=== PATIENT | male | born 1960 | race Two or more races ===

== ENCOUNTER 2022-11-03 06:08 | Outpatient (REF) | payer OTHER, SELFPAY ==
[2022-11-03 11:25] LABS: Appearance Urine Clear; Color Urine Yellow; Glucose Urine UA Negative (Negative); Leukocyte Esterase Urine Negative (Negative); Nitrite Urine Negative (Negative); Specific Gravity - Urine 1.015 (1.005-1.025); Urine Blood Negative (Negative); Urine Ketones Negative (Negative); Urine Protein Negative (Neg-Trace)
[2022-11-03 11:31] LABS: Bacteria Urine None Seen (None Seen); Hyaline Casts Urine 0-2 /LPF (0-2); RBC Urine 0-2 /HPF (0-2); Squamous Epithelial Cell Urine 0-2 /HPF (0-2); WBC Urine 0-5 /HPF (0-5)
[2022-11-03 12:06] LABS: Alanine Aminotransferase 88 U/L (0-40); Albumin Level 4.3 g/dL (3.5-5.0); Alkaline Phosphatase 60 U/L (39-117); Anion Gap 12 (12-20); Aspartate Amino Transferase 40 U/L (5-37); Bilirubin Total 0.6 mg/dL (0.0-1.0); Blood Urea Nitrogen 12 mg/dL (9-16); Calcium 9.5 mg/dL (8.4-10.2); Carbon Dioxide 27 mmol/L (22-29); Chloride 107 mmol/L (96-108); Cholesterol 201 mg/dL; Estimated Glomerular Filt Rate > 60; Glucose Fasting 115 mg/dL (60-99); HDL Cholesterol 42 mg/dL; LDL Cholesterol Calculated 133 mg/dl; PSA,Total (Free>4and<10) 0.67 ng/mL (0.00-4.00); Potassium 4.4 mmol/L (3.3-5.1); Sodium 142 mmol/L (135-145); TSH reflex Free T4 4.91 uIU/mL (0.32-4.0); Total Protein 7.2 g/dL (6.5-8.0); Triglycerides 130 mg/dL
[2022-11-03 13:09] LABS: Free T4 (Free Thyroxine) 0.94 ng/dL (0.71-1.85)
== END 2022-11-03 06:09 | disposition home or self-care (01) ==
LOC: HO.HMGCLDS 06:08
PROVIDERS: PCP Internal Medicine; Visit Provider Internal Medicine
DX: Z12.5 Encounter for screening for malignant neoplasm of prostate (principal); E03.9 Hypothyroidism, unspecified; E78.5 Hyperlipidemia, unspecified; M54.30 Sciatica, unspecified side; I10 Essential (primary) hypertension
CPT/HCPCS: 36415; 80053; 80061; 81001; 84153; 84439; 84443

== ENCOUNTER 2023-01-09 08:20 | Outpatient (AMB) | payer OTHER, SELFPAY ==
--- NOTE | 2023-01-09 08:24 | A.OFFVIS_ITS ---
Intake Vital Signs 01/09/23 08:41 Height 5 ft 6 in BP 112/58 L Blood Pressure Location Lt brachial Position Sitting Pulse 80 Intake Visit Reasons: rectal bleeding Intake Note: Patient new consult for rectal bleeding and Colonoscopy screening. Patient cc: rectal bleeding due hemorrhoids on and off. 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 Accompanied by: Self / Same As Patient Allergies Sulfa (Sulfonamide Antibiotics) Allergy (Verified 01/09/23 08:24) vomiting Medication List - Last Reconciled 01/09/23 by Hallie Lei PA-C bimatoprost 0.01% (Lumigan) 0 drps ophthalmic (eye) dorzolamide 2% 0 drps ophthalmic (eye) hydrocortisone 2.5% 1 appl [place] BID-QID PRN ketoconazole 2% 1 appl topical DAILY lisinopril 10 mg PO DAILY thyroid (pork) ([place] Thyroid) 45 mg (1.5 x 30 mg) PO DAILY HPI HPI Comments History of Present Illness Details A 62-year-old male referred with rectal bleeding he had been seen by PCP is using rectal cream with good response. He believes he has hemorrhoids He has never had screening colonoscopy appetite is good Bowels normal He has no respiratory or cardiac Reviewed please record elevated liver enzymes He does drink alcohol No nausea, vomiting, hematemesis, hematochezia fevers or chills PFSH Surgical History History of hernia surgery Family History Mother No problems noted. Social History Household Members Other:: , 1 daughter with 5 children [facility] Patient Tobacco Use Status: Never used Tobacco e-Cigarette/Vaping Use: Never Used Current occupational status: unemployed Cognitive needs: No Hearing needs: No Vision needs: Yes Review of Systems Const All systems reviewed & are unremarkable except as noted in HPI and below Card Denies chest pain and Denies dyspnea Resp Denies dyspnea GI Denies abdominal pain, Denies hematochezia, Denies change in stool character, Denies heartburn, Denies nausea and Denies vomiting Physical Exam Vital Signs: Last Vital Signs Pulse 80 01/09/23 08:41 BP 112/58 L 01/09/23 08:41 Const General: cooperative, healthy appearing, comfortable and no acute distress Orientation/consciousness: patient oriented x3 Limitations: no limitations Resp Effort & Inspection: normal respiratory effort and able to speak in complete sentences Auscultation: clear to auscultation bilaterally Cardio Rate: regular rate Rhythm: regular rhythm Heart sounds: S1 normal heart sound present and S2 normal heart sound present GI Palpation (GI): Soft to palpation and nontender Auscultation: normal bowel sounds Neuro General: patient oriented x3 Extrem General: Yes full ROM Psych Appearance: grossly normal Mental Status: mental status grossly normal Speech and movement: Normal speech and movement present and Clear speech present Affect: normal affect Attitude: cooperative Thought process: Normal thought process present Thought content: Normal thought content present Insight: Good insight present (Psych) Judgement: Good judgement present (Psych) Results Reviewed Results Reviewed: Labs Assessment & Plan Assessment & Plan (1) Rectal bleeding: Code(s): K62.5 - Hemorrhage of anus and rectum Plan: High-fiber diet Continue rectal cream Avoid straining Colonoscopy (2) Elevated liver enzymes: Comment: Alcohol socially, maybe more Code(s): R74.8 - Abnormal levels of other serum enzymes Plan: Liver w/u- labs/u/s Monitor alcohol use Plan Colonoscopy, MiraLax Gatorade prep Maintain high-fiber diet Avoid straining Orders: Orders Colonoscopy - GI Use Only Today K62.5 - Hemorrhage of anus and rectum LETICIA Reflex Titer and Pattern Today R74.01 - Elevation of levels of liver trans aminase levels Hepatitis A,B,C Profile Today R79.89 - Other specified abnormal findings of blood chemistry Mitochondrial Antibody Today R74.01 - Elevation of levels of liver transaminase levels Smooth Muscle Antibody Today R74.8 - Abnormal levels of other serum enzymes Alpha 1 Anti-trypsin Today R74.01 - Elevation of levels of liver transaminase levels Ceruloplasmin Today E78.5 - Hyperlipidemia, unspecified, I10 - Essential (primary) hypertension, K62.5 - Hemorrhage of anus and rectum, R74.8 - Abnormal levels of other serum enzymes Liver Panel Today R10.11 - Right upper quadrant pain US abdomen comp w elastography Today R74.8 - Abnormal levels of other serum enzymes Medications: New bisacodyl (Dulcolax (bisacodyl)) Take 4 tablets by mouth at 12:00pm the day before your procedure. 20 mg (4 x 5 mg) PO ONCE 1 day 4 tabs 0RF colonoscopy prep Z12.11 - Encounter for screening for malignant neoplasm of colon polyethylene glycol 3350 (Miralax) Take as directed by mouth the day before your procedure. 238 grams PO ONCE 1 day 238 grams 0RF Patient Instructions: Srinivasan 62-year-old male referred with rectal bleeding, likely hemorrhoidal, however needs further evaluation. Elevated liver enzymes He has never had index screening colonoscopy-discussed procedure, rare risks, need for escorted due to anesthesia as well as MiraLax Gatorade prep literature given agrees to proceed Reviewed labs elevated liver enzymes will do liver workup, we will also get abdominal ultrasound Will see him back in follow-up for plan of care Appreciate the opportunity assist in the care this srinivasan Ramos Coding Level of Care Code New Pt Level 4 (65061) Diagnoses Rectal bleeding K62.5 Elevated liver enzymes R74.8 Time Spent (min) 45
[2023-01-09 08:41] VITALS: BP 112/58; PULSE 80
== END 2023-01-09 09:25 | disposition home or self-care (01) ==
PROVIDERS: PCP Internal Medicine; Visit Provider Physician Assistant
DX: K62.5 Hemorrhage of anus and rectum (principal); R74.8 Abnormal levels of other serum enzymes
CPT/HCPCS: 99204

== ENCOUNTER → 2023-01-09 08:20 | Outpatient (BNVA) | payer OTHER, SELFPAY | PROVIDERS: PCP Internal Medicine; Visit Provider Physician Assistant ==

== ENCOUNTER 2023-01-31 07:57 | Outpatient (REF) | payer OTHER, SELFPAY ==
--- NOTE | ~2023-01-31 | US_ITS ---
EXAMINATION: US COMPLETE ABDOMEN WITH LIVER ELASTOGRAPHY CLINICAL INFORMATION: Abnormal serum enzymes. COMPARISON: None available. TECHNIQUE: Real-time imaging of the abdominal viscera. Noninvasive ultrasound liver fibrosis assessment is performed using Nesha ElastPQ point quantification shear wave elastography (2D-SWE) with a C5-2 MHz transducer. Multiple elastography samples are obtained. FINDINGS: PANCREAS: Normal. The visualized pancreatic head and body are normal in appearance. The remainder of the pancreas is obscured from visualization by the overlying bowel gas. ABDOMINAL AORTA: The proximal, middle, and distal aortic segments are normal in caliber. There are atherosclerotic calcifications. INFERIOR VENA CAVA: Visualized portions are normal. LIVER: Within the left hepatic lobe, a 1.9 cm benign, simple cyst is seen, for which no imaging follow-up is recommended. The liver demonstrates normal size, contour and echogenicity. No focal solid lesion or intrahepatic biliary duct dilatation. The right lobe measures 16.1 cm in length. The left lobe measures 10.3 cm in length. Portal flow is towards the liver (hepatopetal). Shear wave liver elastography median stiffness is 1.90 m/s (reference: normal median stiffness is 1.3 m/s or less). IQR/median stiffness to assess sampling precision is 0.11 (reference: good quality data set is IQR/median stiffness of 0.15 or less). GALLBLADDER: Normal. The gallbladder is physiologically distended without evidence of stones, sludge, polyps, wall thickening or pericholecystic fluid. COMMON BILE DUCT: Normal in caliber measuring 0.5 cm in diameter. RIGHT KIDNEY: Normal. No hydronephrosis. No renal calculi or focal parenchymal lesions. The kidney measures 10.3 cm in maximum dimension. LEFT KIDNEY: Normal. No hydronephrosis. No renal calculi or focal parenchymal lesions. The kidney measures 10.6 cm in maximum dimension. SPLEEN: Normal. The spleen measures 8.1 cm in maximum dimension. FREE FLUID: None. US/US abdomen comp w elastography IMPRESSION: 1. There is generalized increase in hepatic echotexture, consistent with fatty infiltration or hepatocellular disease. Please correlate clinically. No focal hepatic mass or intrahepatic biliary dilatation is seen. 2. Liver elastography: Measurements are suggestive of compensated advanced chronic liver disease but need further test for confirmation. REFERENCE: Society of Radiologists in Ultrasound Liver Stiffness Thresholds (2020): LIVER STIFFNESS THRESHOLDS: *Liver Stiffness equal or less than 1.3 m/s: High probability of being normal. *Liver Stiffness less than 1.7 m/s: In the absence of other known clinical signs, rules out compensated advanced chronic liver disease. *Liver Stiffness 1.7-2.1 m/s: Suggestive of compensated advanced chronic liver disease but need further test for confirmation. *Liver Stiffness over 2.1 m/s: Rules in compensated advanced chronic liver disease. *Liver Stiffness over 2.4 m/s: Suggestive of clinically significant portal hypertension. QUALITY OF DATA SET: *IQR/Median value equal or less than 0.15 implies a quality data set. *IQR/Median value over 0.15 implies a poor quality data set. SIGNIFICANT CHANGE FROM PRIOR EXAM: Significant change if liver stiffness measurement is 10% or greater from prior exam. OTHER CONSIDERATIONS: The stage of liver fibrosis may be overestimated in the setting of acute hepatitis, liver inflammation, elevated liver function tests, hepatic vascular congestion, obstructive cholestasis, non-fasting state, and infiltrative diseases such as amyloidosis and lymphoma. In some patients with NAFLD, the liver stiffness thresholds for compensated advanced chronic liver disease may be lower. In causes other than viral hepatitis and NAFLD, liver stiffness thresholds are not well established.
== END 2023-01-31 07:58 | disposition home or self-care (01) ==
LOC: HO.US 07:57
PROVIDERS: PCP Internal Medicine; Visit Provider Physician Assistant
DX: R74.8 Abnormal levels of other serum enzymes (principal)
CPT/HCPCS: 76705; 76981

== ENCOUNTER 2023-02-10 06:43 | Outpatient (REF) | payer OTHER, SELFPAY ==
[2023-02-10 11:53] LABS: Estimated Average Glucose 103 mg/dL; Hemoglobin A1c % 5.2 % (<6.0)
[2023-02-10 12:16] LABS: Alanine Aminotransferase 62 U/L (0-40); Albumin Level 4.3 g/dL (3.5-5.0); Alkaline Phosphatase 64 U/L (39-117); Anion Gap 14 (12-20); Aspartate Amino Transferase 32 U/L (5-37); Bilirubin Direct 0.2 mg/dL (0.0-0.5); Bilirubin Total 0.6 mg/dL (0.0-1.0); Blood Urea Nitrogen 14 mg/dL (9-16); Calcium 9.9 mg/dL (8.4-10.2); Carbon Dioxide 27 mmol/L (22-29); Chloride 104 mmol/L (96-108); Estimated Glomerular Filt Rate > 60; Glucose Fasting 112 mg/dL (60-99); Potassium 4.3 mmol/L (3.3-5.1); Sodium 141 mmol/L (135-145); Total Protein 7.4 g/dL (6.5-8.0)
[2023-02-10 12:32] LABS: TSH reflex Free T4 3.01 uIU/mL (0.32-4.0)
[2023-02-11 14:28] LABS: HBsAGNum1 0.29 S/CO (0.00-0.99); Hepatitis B Core Antibody Nonreactive (Nonreactive); Hepatitis B Surface Antigen Negative (Negative); ~HepC Num1 0.13 S/CO (0.00-0.79); ~Hepatitis B Surface Antibody NONREACTIVE (Nonreactive); ~Hepatitis C Antibody Nonreactive (Nonreactive)
[2023-02-11 14:37] LABS: HBS Num1 0.28 mIU/mL (0-7.99); HBsAGNum1 0.41 S/CO (0.00-0.99); Hepatitis B Core Antibody Nonreactive (Nonreactive); Hepatitis B Surface Antigen Negative (Negative); ~HepC Num1 0.14 S/CO (0.00-0.79); ~Hepatitis A Antibody IgM Nonreactive (Nonreactive); ~Hepatitis B Surface Antibody NONREACTIVE (Nonreactive); ~Hepatitis C Antibody Nonreactive (Nonreactive)
[2023-02-14 14:28] LABS: Mitochondrial Antibodies NEGATIVE (NEGATIVE)
[2023-02-14 15:43] LABS: Alpha 1 Anti-trypsin 140 mg/dL (83-199); Ceruloplasmin 22 mg/dL (18-36)
[2023-02-15 23:39] LABS: Smooth Muscle Antibody <20 U (<20)
[2023-02-16 14:54] LABS: Anti Nuclear Antibody Screen POSITIVE (NEGATIVE)
== END 2023-02-10 06:44 | disposition home or self-care (01) ==
LOC: HO.HMGCLDS 06:43
PROVIDERS: Absent Provider Physician Assistant; PCP Internal Medicine; Visit Provider Internal Medicine
DX: R10.11 Right upper quadrant pain (principal); E03.9 Hypothyroidism, unspecified; E78.5 Hyperlipidemia, unspecified; I10 Essential (primary) hypertension; R74.01 Elevation of levels of liver transaminase levels; K62.5 Hemorrhage of anus and rectum; R74.8 Abnormal levels of other serum enzymes; R79.89 Other specified abnormal findings of blood chemistry
CPT/HCPCS: 36415; 80053; 80076; 82103; 82248; 82390; 83036; 84443; 86015; 86038; 86039; 86381; 86704; 86706; 86709; 86803; 87340

== ENCOUNTER 2023-02-17 11:46 | Outpatient (AMB) | payer OTHER, SELFPAY ==
[2023-02-17 11:54] VITALS: BP 110/68; PULSE 71; O2SAT 98; BMI 27.0
--- NOTE | 2023-02-17 11:54 | MHC.PC.OV ---
Vital Signs 02/17/23 11:54 Height 5 ft 6 in Weight 167 lb BMI 27.0 BP 110/68 Blood Pressure Location Lt brachial Position Sitting Pulse 71 Pulse Source Pulse Oximeter Pulse Oximetry (%) 98 Oxygen Delivery Method Room Air Intake Visit Reasons: Annual PE Intake Note: Pt is here today for PE. Allergies Sulfa (Sulfonamide Antibiotics) Allergy (Verified 02/17/23 11:59) vomiting Medication List - Last Reconciled 02/17/23 by Wanda Vidal MD bimatoprost 0.01% (Lumigan) 0 drps ophthalmic (eye) bisacodyl (Dulcolax (bisacodyl)) 20 mg (4 x 5 mg) PO ONCE 1 day dorzolamide 2% 0 drps ophthalmic (eye) hydrocortisone 2.5% 1 appl [place] BID-QID PRN ketoconazole 2% 1 appl topical DAILY lisinopril 10 mg PO DAILY polyethylene glycol 3350 (Miralax) 238 grams PO ONCE 1 day thyroid (pork) ([place] Thyroid) 45 mg (1.5 x 30 mg) PO DAILY Tobacco use date assessed: 02/17/23 Fall risk assessment: No Falls in past year Last assessed Fall Risk: 02/17/23 Dental Screening Dental Screen Date: 02/17/23 Did you have a dental visit in the last 12 months?: Yes Did you have a dental problem in the last 6 months where you did not have access to dental care?: No Was dental information given to patient?: Patient has dentist HPI Annual PE HPI Details Pt presents for PE. PFSH Surgical History History of hernia surgery Family History Mother No problems noted. Social History Household Members Other:: , 1 daughter with 5 children Housing: Condominium Patient Tobacco Use Status: Never used Tobacco e-Cigarette/Vaping Use: Never Used Current occupational status: unemployed Cognitive needs: No Hearing needs: No Vision needs: Yes Questionnaire Thrive Questionnaire Date Thrive assessed: 11/11/22 MANSOOR-7 AMB Questionnaire MANSOOR-7 Date MANSOOR - 7 assessed: 11/11/22 Source: Developed by Drs. Glynn Winters, Lulu Boo, Randy Samuel and colleagues, with an educational sarahi from [employer]. Review of Systems Const All systems reviewed & are unremarkable except as noted in HPI and below Reports no additional complaints Eyes Reports no additional complaints ENT Reports no additional complaints Card Reports no additional complaints Resp Reports no additional complaints GI Reports no additional complaints Reports no additional complaints Musc Reports no additional complaints Physical exam (Primary Care) Vital Signs: Last Vital Signs Pulse 71 02/17/23 11:54 BP 110/68 02/17/23 11:54 Pulse Ox 98 02/17/23 11:54 Oxygen Delivery Method Room Air 02/17/23 11:54 BMI result Body Mass Index 27.0 Tobacco/Smoking Status: Tobacco use Status Tobacco use date assessed 02/17/23 02/17/23 12:04 Patient Tobacco Use Status Never used Tobacco 02/17/23 11:54 e-Cigarette/Vaping Use Never Used 02/17/23 11:54 Thrive Assessment: Date of Thrive Assessment Date Thrive assessed 11/11/22 02/17/23 11:54 Const General: no acute distress HENMT Head: Yes normal to inspection Ears: hearing grossly normal bilaterally Face and sinus: Yes normal facial exam Neck Neck: Yes no lymphadenopathy and Yes supple Resp Effort & Inspection: normal respiratory effort Auscultation: clear to auscultation bilaterally Cardio Rhythm: regular rhythm Heart sounds: S1 normal heart sound present and S2 normal heart sound present GI Inspection: Yes normal to inspection Palpation (GI): Soft to palpation Percussion: Yes normal to percussion Auscultation: normal bowel sounds Assessment and Plan Assessment & Plan (1) Elevated liver enzymes: Comment: 2-3 glasses of wine at night, liver ultrasound consistent with fatty liver/ chronic liver disease, hepatitis workup negative 01/01 Code(s): R74.8 - Abnormal levels of other serum enzymes Plan: LFTs are improving since patient has been following low-fat diet. He was advised to decrease alcohol intake or avoided completely. LFTs will be monitor in 6 months (2) Hyperglycemia: Code(s): R73.9 - Hyperglycemia, unspecified Plan: ADA diet regular exercise discussed with the patient (3) Hyperlipidemia: Code(s): E78.5 - Hyperlipidemia, unspecified Plan: Continue low-cholesterol diet (4) Hypothyroid: Code(s): E03.9 - Hypothyroidism, unspecified Plan: Continue thyroid replacement (5) HTN (hypertension): Code(s): I10 - Essential (primary) hypertension Plan: Continue lisinopril (6) Rectal bleeding: Comment: Colonoscopy to be scheduled by GI 01/01 Code(s): K62.5 - Hemorrhage of anus and rectum Orders: Orders Comprehensive Terrell. Panel Fast 6 Months E03.9 - Hypothyroidism, unspecified, E78.5 - Hyperlipidemia, unspecified, I10 - Essential (primary) hypertension, R73.9 - Hyperglycemia, unspecified, R74.8 - Abnormal levels of other serum enzymes TSH reflex Free T4 6 Months E03.9 - Hypothyroidism, unspecified, E78.5 - Hyperlipidemia, unspecified, I10 - Essential (primary) hypertension, R73.9 - Hyperglycemia, unspecified, R74.8 - Abnormal levels of other serum enzymes Lipid Panel 6 Months E03.9 - Hypothyroidism, unspecified, E78.5 - Hyperlipidemia, unspecified, I10 - Essential (primary) hypertension, R73.9 - Hyperglycemia, unspecified, R74.8 - Abnormal levels of other serum enzymes Complete Blood Count Auto Diff 6 Months E03.9 - Hypothyroidism, unspecified, E78.5 - Hyperlipidemia, unspecified, I10 - Essential (primary) hypertension, R73.9 - Hyperglycemia, unspecified, R74.8 - Abnormal levels of other serum enzymes Coding Level of Care Code Est Pt Prev Care 40-64y(47271) Diagnoses Elevated liver enzymes R74.8 Hyperglycemia R73.9 Hyperlipidemia E78.5 Hypothyroid E03.9 HTN (hypertension) I10 Rectal bleeding K62.5
== END 2023-02-17 14:32 | disposition home or self-care (01) ==
PROVIDERS: PCP Internal Medicine; Visit Provider Internal Medicine
DX: Z00.00 Encounter for general adult medical examination without abnormal findings (principal); E03.9 Hypothyroidism, unspecified; I10 Essential (primary) hypertension; R74.8 Abnormal levels of other serum enzymes; R73.9 Hyperglycemia, unspecified; E78.5 Hyperlipidemia, unspecified; K62.5 Hemorrhage of anus and rectum
CPT/HCPCS: 99396

== ENCOUNTER 2023-08-08 06:16 | Day surgery (SDC) | payer OTHER, SELFPAY ==
--- NOTE | 2023-08-07 09:39 | P.CONAN_ITS ---
Documented by User: Samantha Deluna NP 08/07/23 09:43 HPI - Anesthesia Eval Consult details Narrative: 62yo M for Colonoscopy PMFSH Active Problems Active Problems: All Active Problems (Updated 02/17/23 @ 14:32 by Wanda Vidal MD) Elevated liver enzymes (Acute) Rectal bleeding (Acute) Hyperglycemia (Acute) Glaucoma (Acute) Hyperlipidemia (Acute) Hypothyroid (Acute) HTN (hypertension) (Acute) Sciatica (Acute) Past Medical History Medical History (Updated 08/07/23 @ 09:39 by Samantha Deluna NP) Glaucoma Hyperlipidemia Hypothyroid HTN (hypertension) Family History Family History Mother No problems noted. Surgical History Surgical History History of hernia surgery Social History Social History Household Members Other:: , 1 daughter with 5 children Housing: [facility] Patient Tobacco Use Status: Never used Tobacco e-Cigarette/Vaping Use: Never Used Use of substances other than those prescribed or required for medical reasons: No Are you DNR?: No Advance Directives: No Advance Directives Information Provided: Yes Current occupational status: unemployed Cognitive needs: No Hearing needs: No Vision needs: Yes Meds Allergies Allergy/AdvReac Type Severity Reaction Status Date / Time Sulfa (Sulfonamide Allergy vomiting Verified 02/17/23 11:59 Antibiotics) Home Medications Medication Instructions Recorded Confirmed Last Taken Type bimatoprost 0.01 % eye drops 0 drp ophthalmic (eye) 12/14/21 02/17/23 Unknown History (Tono) dorzolamide 2 % eye drops 0 drp ophthalmic (eye) 12/14/21 02/17/23 Unknown History Exam Pertinent Lab Results Pertinent Lab Results: Laboratory Tests 02/10/23 06:56 Sodium 141 Potassium 4.3 Chloride 104 Carbon Dioxide 27 BUN 14 Creatinine 0.96 Assessment and Plan Assessment Anesthesia Assessment: Chart Reviewed Documented by User: Collins Zapien MD 08/08/23 07:02 [facility] Past Medical History Medical History (Updated 08/07/23 @ 09:39 by Samantha Deluna NP) Glaucoma Hyperlipidemia Hypothyroid HTN (hypertension) Functional capacity: independent ambulation Family History Family History Mother No problems noted. Family history of problems with anesthesia: No Surgical History Surgical History History of hernia surgery History of Problems with Anesthesia: No Social History Social History Household Members Other:: , 1 daughter with 5 children Housing: [facility] Patient Tobacco Use Status: Never used Tobacco e-Cigarette/Vaping Use: Never Used Use of substances other than those prescribed or required for medical reasons: No Are you DNR?: No Advance Directives: No Advance Directives Information Provided: Yes Current occupational status: unemployed Cognitive needs: No Hearing needs: No Vision needs: Yes Meds Allergies Allergy/AdvReac Type Severity Reaction Status Date / Time Sulfa (Sulfonamide Allergy vomiting Verified 02/17/23 11:59 Antibiotics) Home Medications Medication Instructions Recorded Confirmed Last Taken Type bimatoprost 0.01 % eye drops 0 drp ophthalmic (eye) 12/14/21 02/17/23 Unknown History (Lumigan) dorzolamide 2 % eye drops 0 drp ophthalmic (eye) 12/14/21 02/17/23 Unknown History Exam Airway Mallampati Class: II TM Dist: >3cm Neck ROM: Full Loose/Missing/Broken Teeth: No Heart: rrr Lungs: cta b/l Assessment and Plan Assessment Anesthesia Assessment: Anesthesia Plan Discussed Final Anesthetic Review Family History of Problems with Anesthesia: No History of Problems with Anesthesia: No NPO: Yes ASA Class: II Final Preanesthetic Review: No Changes in Pt Med Stat, Meds/Allgs Chart Reviewed, Consent Obtained/Reviewed and Anes Risks/Benef Reviewed Patient Risk: Intermediate Procedure Risk: Intermediate Anesthetic Plan Anesthetic Plan: MAC: Disposition: Standard PACU
[2023-08-08 06:29] VITALS: BMI 28.0
--- NOTE | 2023-08-08 06:40 | MHC.SHP ---
Pre-Procedural Eval Section A - 24 Hr Update-Section A only Date of Service: 08/08/23 Section B - Complete if H&P > 30 days Chief Complaint: rectal bleeding Relevant Family History (Specify if Yes): No Relevant Social History: None Present Medications: see Short Stay Collaborative assessment Medical History: Significant History (hypothyroid) History of Previous Operations: Relevant previous surgery/procedure and date(s) (History of hernia surgery) Allergies: Allergies Allergy/AdvReac Type Severity Reaction Status Date / Time Sulfa (Sulfonamide Allergy vomiting Verified 02/17/23 11:59 Antibiotics) Review of Systems Sugical H&P ROS: Negative: Constitution, Cardiovascular, Respiratory, Neurological, Psychiatric, Hem-Onc, Allergic/Immunologic, Gastrointestinal, Genitourinary, Musculoskeletal, Integumentary, Endocrine and Eyes/Ears/Nose/Throat Exam Surgical H&P Exam: Normal: HEENT, Normal: Heart, Normal: Lungs, Normal: Extremities and Normal: Neurological, Not Evaluated: Abdomen and Significant Findings: Skin (facial hemangioma ) Plan Diagnosis/Plan: Unchanged I have reviewed the history and physical and performed a pertinent physical examination on my patient. No changes have occurred unless specified. Time Spent With Patient Time: Total time managing care of this patient today ____ minutes.
[2023-08-08 06:44] VITALS: BP 146/92; PULSE 94; RESP 16; TEMP 36.8; O2SAT 99
[2023-08-08] MEDS: Lactated Ringers 1,000 ML 100 ML IVCONT (06:56)
--- NOTE | 2023-08-08 07:43 | W.PM.OPN ---
Operative Note Operative Note Date of Service: 08/08/23 Narrative: Operative Information Procedure Description: Colonoscopy Indication: rectal bleeding Anesthesia: MAC COLONOSCOPY Instrument: Olympus variable stiffness pediatric scope 190L Colonoscopy Monitoring: Vital signs and clinical assessment, continuous EKG monitoring, Pulse oximetry, Carbon Dioxide monitoring and blood pressure monitoring were done throughout the procedure. Colon withdrawal time was 12 minutes. Procedure: The patient was placed in the left lateral decubitis position and pre-procedure medications were administered. After a digital rectal examination of the ano-rectum, the video colonoscope was inserted into the rectum and advanced through the colon to the cecum/TI. The colonoscope was slowly withdrawn in a retrograde panoramic fashion and the colon mucosa was carefully examined including a retroflexed view of the rectum. Findings and interventions are described below. Procedure Difficulty: easy Findings: Terminal Ileum-normal Cecum:normal, prominent ileocecal valve, bx taken Right retroflexion: normal Ascending Colon: normal Transverse Colon -normal Descending Colon: moderate diverticulosis Sigmoid Colon: severe diverticulosis--distal sigmoid at 22 cm from anal verge large pedunculated polyp measured about 15-18 mm, injected with few cc of epinephrine then removed with hot snare with 3 clips applied Rectum: Retroflexion with medium sizedI internal hemorrhoids, grade I Anorectum - normal Colon preparation: Mclean Bowel Preparation Scale Right colon; 2 Transverse colon: 2 Left colon; 1-2 (0 = Unprepared colon segment with mucosa not seen due to solid stool that cannot be cleared. 1 = Portion of mucosa of the colon segment seen, but other areas of the colon segment not well seen due to staining, residual stool and/or opaque liquid. 2 = Minor amount of residual staining, small fragments of stool and/or opaque liquid, but mucosa of colon segment seen well. 3 = Entire mucosa of colon segment seen well with no residual staining, small fragments of stool or opaque liquid) Impression and Post Procedure Diagnosis: polyps internal hemorrhoids diverticular disease Plan: High fiber diet leaflet Avoid straining at stool, epsom salts and sitz bath, anusol supps or cream Repeat Colonoscopy in 6-12 months or earlier if clinically indicated avoid nsaids, if any profuse rectal bleeding, fever, or abdominal pain come to ED KO Above findings were reviewed with the patient and relevant handouts were provided if indicated.
[2023-08-08 08:07] VITALS: BP 120/69; PULSE 82; RESP 19; TEMP 36.1; O2SAT 96
[2023-08-08 08:23] VITALS: BP 118/44; PULSE 85; RESP 17; TEMP 36.1; O2SAT 96
== END 2023-08-08 08:58 | disposition home or self-care (01) ==
PROVIDERS: PCP Internal Medicine; Visit Provider Internal Medicine Gastroenterology
PROC: 0DJD8ZZ Inspection of Lower Intestinal Tract, Via Natural or Artificial Opening Endoscopic (ICD-10-PCS; CPT 45378; principal; 2023-08-08 07:30)
DX: K62.5 Hemorrhage of anus and rectum (principal); D12.5 Benign neoplasm of sigmoid colon; K57.30 Diverticulosis of large intestine without perforation or abscess without bleeding; K64.0 First degree hemorrhoids; R74.9 Abnormal serum enzyme level, unspecified; I10 Essential (primary) hypertension; E78.5 Hyperlipidemia, unspecified; E03.9 Hypothyroidism, unspecified; H40.9 Unspecified glaucoma; Z79.899 Other long term (current) drug therapy; Z88.2 Allergy status to sulfonamides
CPT/HCPCS: 45385; 45380; 45381; 88305; J0171; J2704

== ENCOUNTER → 2023-08-08 06:16 | Outpatient (BNV) | payer OTHER, SELFPAY | PROVIDERS: PCP Internal Medicine; Visit Provider Internal Medicine Gastroenterology | DX: K62.5 Hemorrhage of anus and rectum (principal); K57.90 Diverticulosis of intestine, part unspecified, without perforation or abscess without bleeding; D12.5 Benign neoplasm of sigmoid colon; K64.0 First degree hemorrhoids | CPT/HCPCS: 45380; 45381; 45385 ==

== ENCOUNTER 2023-09-06 13:05 | Outpatient (AMB) | payer OTHER, SELFPAY ==
[2023-09-06 13:39] VITALS: BP 138/74; PULSE 92; TEMP 36.7; O2SAT 97; BMI 27.8
--- NOTE | 2023-09-06 13:39 | AM.OFFWIN_ITS ---
Intake Vital Signs 09/06/23 13:39 Height 5 ft 6 in Weight 172 lb 8 oz BMI 27.8 BP 138/74 Blood Pressure Location Rt brachial Position Sitting Pulse 92 Pulse Source Pulse Oximeter Temp 98.0 F Temp Source Oral Pulse Oximetry (%) 97 Oxygen Delivery Method Room Air Intake Visit Reasons: EP Head cold 2 weeks Intake Note: Pt presents to the office today for coughing, sinus pressure and congestion for about 2 weeks. Patient Tobacco Use Status: Never used Tobacco Allergies Penicillins Allergy (Intermediate, Verified 09/06/23 13:42) Vomiting HPI HPI Comments History of Present Illness Details He presents with for sinus infection Ongoing x 2 weeks Sinus pressure + ear ache and minimal ST this am + cough without CP or SOB No relief with OTC solutions No other complaints being tx with same thing PFSH Medical History Glaucoma Hyperlipidemia Hypothyroid HTN (hypertension) Surgical History Hx of colonoscopy History of hernia surgery Family History Mother No problems noted. 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 Speaking full sentences. Skin: Warm dry throughout Eye: EOMI HENT: Airway patent. Uvula midline. No pharyngeal erythema or edema. No SENIOR CYTOTECHNOLOGIST. Bilateral canals clear. TM non-erythematous, non-bulging. No TM perforation or hemotympanum noted. Respiratory: CTA bilaterally. No wheezes, rales or rhonchi Cardiac: RRR. No murmur MSK: Full ROM extremities. Neurology: A. No aphasia or facial droop. Gait without abnormality Psych: Good mood and affect Assessment & Plan Assessment & Plan (1) Bacterial sinusitis: Code(s): J32.9 - Chronic sinusitis, unspecified; B96.89 - Other specified bacterial agents as the cause of diseases classified elsewhere Plan: Patient seen and evaluated. Symptoms consistent with bacterial sinusitis He said he has a lot of medicine rxns; no anaphylaxis (mostly GI upset) He said no amxocillin based. usually tolerated Bactrim Discussed not good coverage with bactrim so will trial doxycycline with food Refill given on hydrocortisone Patient gave verbal understanding and had no additional questions or concerns at time of discharge All questions answered Medications: New doxycycline monohydrate 100 mg PO BID 14 caps 0RF Refilled hydrocortisone 2.5% 1 appl ME BID-QID PRN 60 grams 1RF hemorrhoids Coding Level of Care Code Est Pt Level 3 (67466) Diagnoses Bacterial sinusitis J32.9; B96.89
== END 2023-09-06 15:09 | disposition home or self-care (01) ==
PROVIDERS: PCP Internal Medicine; Visit Provider Physician Assistant
DX: J32.9 Chronic sinusitis, unspecified (principal); B96.89 Other specified bacterial agents as the cause of diseases classified elsewhere
CPT/HCPCS: 99213

== ENCOUNTER 2023-09-14 06:49 | Outpatient (REF) | payer OTHER, SELFPAY ==
[2023-09-14 10:18] LABS: MANUAL DIFF FLAG NO
[2023-09-14 10:23] LABS: Basophils Percent Auto 0.6 % (0-2); Eosinophils Absolute Auto 0.1 X10*3/uL (0.0-0.4); Eosinophils Percent Auto 1.5 % (0-4); Hematocrit 46.9 % (42.0-52.0); Hemoglobin 15.6 g/dl (14.0-18.0); Imm Gran Abs Auto 0.02 X10*3/uL (0.00-0.03); Imm Gran Pct Auto 0.4 % (0.0-0.4); Lymphocytes Absolute Auto 2.3 X10*3/uL (1.2-4.9); Lymphocytes Percent Auto 47.9 % (20-40); Mean Corpuscular HGB Conc 33.3 g/dl (31.0-36.0); Mean Corpuscular Hemoglobin 31.5 pg (27.0-33.0); Mean Corpuscular Volume 94.7 fL (80.0-98.0); Mean Platelet Volume 9.9 fL (9.4-12.4); Monocytes Absolute Auto 0.6 X10*3/uL (0.1-1.2); Monocytes Percent Auto 12.2 % (2-11); Neutrophils Absolute Auto 1.8 x10*3/uL (2.0-8.3); Neutrophils Percent Auto 37.4 % (45-73); Platelet Count 298 X10*3/uL (160-400); Red Blood Count 4.95 X10*6/uL (4.60-5.80); White Blood Count 4.7 X10*3/uL (4.8-10.8)
[2023-09-14 11:01] LABS: Alanine Aminotransferase 93 U/L (0-40); Albumin Level 4.2 g/dL (3.5-5.0); Alkaline Phosphatase 58 U/L (39-117); Anion Gap 11 (12-20); Aspartate Amino Transferase 40 U/L (5-37); Bilirubin Total 0.6 mg/dL (0.0-1.0); Blood Urea Nitrogen 13 mg/dL (9-16); Calcium 9.5 mg/dL (8.4-10.2); Carbon Dioxide 29 mmol/L (22-29); Chloride 106 mmol/L (96-108); Cholesterol 183 mg/dL (<200); Estimated Glomerular Filt Rate > 60; Glucose Fasting 119 mg/dL (60-99); HDL Cholesterol 34 mg/dL (>40); LDL Cholesterol Calculated 123 mg/dL (<100); Potassium 4.1 mmol/L (3.3-5.1); Sodium 142 mmol/L (135-145); Total Protein 7.6 g/dL (6.5-8.0); Triglycerides 131 mg/dL (<150)
[2023-09-14 11:05] LABS: TSH reflex Free T4 1.22 uIU/mL (0.32-4.0)
== END 2023-09-14 06:50 | disposition home or self-care (01) ==
LOC: HO.HMGCLDS 06:49
PROVIDERS: PCP Internal Medicine; Visit Provider Internal Medicine
DX: R74.8 Abnormal levels of other serum enzymes (principal); R73.9 Hyperglycemia, unspecified; E03.9 Hypothyroidism, unspecified; I10 Essential (primary) hypertension; E78.5 Hyperlipidemia, unspecified
CPT/HCPCS: 36415; 80053; 80061; 84443; 85025

== ENCOUNTER 2023-09-20 12:35 | Outpatient (AMB) | payer OTHER, SELFPAY ==
[2023-09-20 12:54] VITALS: BP 112/68; PULSE 98; O2SAT 96; BMI 27.4
--- NOTE | 2023-09-20 12:54 | MHC.PC.OV ---
Vital Signs 09/20/23 12:54 Height 5 ft 6 in Weight 170 lb BMI 27.4 BP 112/68 Blood Pressure Location Rt brachial Position Sitting Pulse 98 Pulse Source Pulse Oximeter Pulse Oximetry (%) 96 Oxygen Delivery Method Room Air Intake Visit Reasons: 3 month follow up Intake Note: Pt is here today for 3 months follow up visit. Allergies Penicillins Allergy (Intermediate, Verified 09/20/23 13:02) Vomiting Tobacco use date assessed: 09/20/23 Fall risk assessment: No Falls in past year Last assessed Fall Risk: 09/20/23 Dental Screening Dental Screen Date: 09/20/23 Did you have a dental visit in the last 12 months?: Yes Did you have a dental problem in the last 6 months where you did not have access to dental care?: No Was dental information given to patient?: Patient has dentist HPI 3 month follow up HPI Details Patient presents for the follow-up of hypertension and hypothyroidism stable on current medications. Patient stopped drinking alcohol 2 months ago but has been eating lot of sweets/candies. He is going to hike in [place] for 2 months. [facility] Medical History (Updated 09/20/23 @ 14:06 by Wanda Vidal MD) HTN (hypertension) Hypothyroid Glaucoma Hyperlipidemia Surgical History Hx of colonoscopy History of hernia surgery Family History Mother No problems noted. Social History Household Members Other:: , 1 daughter with 5 children [facility] Patient Tobacco Use Status: Never used Tobacco e-Cigarette/Vaping Use: Never Used service: No Current occupational status: unemployed Cognitive needs: No Hearing needs: No Vision needs: Yes Questionnaire Thrive Questionnaire Date Thrive assessed: 11/11/22 AUDIT C Alcohol Use Questionnaire (AUDIT-C) 1. How often do you have a drink containing alcohol?: Never 3. How often do you have six or more drinks on one occasion?: Never Total Score: 0 MANSOOR-7 AMB Questionnaire MANSOOR-7 Date MANSOOR - 7 assessed: 11/11/22 Source: Developed by Drs. Glynn L. Lulu Winters, Randy Samuel and colleagues, with an educational sarahi from [employer]. Review of Systems Const All systems reviewed & are unremarkable except as noted in HPI and below Reports no additional complaints Eyes Reports no additional complaints ENT Reports no additional complaints Card Reports no additional complaints Resp Reports no additional complaints GI Reports no additional complaints Reports no additional complaints Physical exam (Primary Care) Vital Signs: Last Vital Signs Pulse 98 09/20/23 12:54 BP 112/68 09/20/23 12:54 Pulse Ox 96 09/20/23 12:54 Oxygen Delivery Method Room Air 09/20/23 12:54 BMI result Body Mass Index 27.4 Tobacco/Smoking Status: Tobacco use Status Tobacco use date assessed 09/20/23 09/20/23 13:04 Patient Tobacco Use Status Never used Tobacco 09/20/23 13:04 e-Cigarette/Vaping Use Never Used 09/20/23 12:55 Thrive Assessment: Date of Thrive Assessment Date Thrive assessed 11/11/22 09/20/23 12:55 Const General: no acute distress HENMT Head: Yes normal to inspection Neck Neck: Yes supple Resp Effort & Inspection: normal respiratory effort Auscultation: clear to auscultation bilaterally Cardio Rhythm: regular rhythm Heart sounds: S1 normal heart sound present and S2 normal heart sound present GI Inspection: Yes normal to inspection Palpation (GI): Soft to palpation Percussion: Yes normal to percussion Auscultation: normal bowel sounds Assessment and Plan Assessment & Plan (1) Elevated liver enzymes: Comment: 2-3 glasses of wine at night, liver ultrasound consistent with fatty liver/ chronic liver disease, hepatitis workup negative 01/01 Code(s): R74.8 - Abnormal levels of other serum enzymes Plan: Patient was advised to abstain from alcohol ,NSAIDs and decrease fructose intake. Follow-up in February for physical with a fasting labs before (2) Hypothyroid: Code(s): E03.9 - Hypothyroidism, unspecified Plan: Continue thyroid replacement (3) HTN (hypertension): Code(s): I10 - Essential (primary) hypertension Plan: Continue lisinopril (4) Hyperglycemia: Code(s): R73.9 - Hyperglycemia, unspecified Plan: cont ADA diet Orders: Orders Comprehensive [place]. Panel Fast 5 Months E03.9 - Hypothyroidism, unspecified, R73.9 - Hyperglycemia, unspecified, R74.8 - Abnormal levels of other serum enzymes TSH reflex Free T4 5 Months E03.9 - Hypothyroidism, unspecified, R73.9 - Hyperglycemia, unspecified, R74.8 - Abnormal levels of other serum enzymes Hemoglobin A1c 5 Months E03.9 - Hypothyroidism, unspecified, R73.9 - Hyperglycemia, unspecified, R74.8 - Abnormal levels of other serum enzymes UA w Microscopic 5 Months E03.9 - Hypothyroidism, unspecified, R73.9 - Hyperglycemia, unspecified, R74.8 - Abnormal levels of other serum enzymes Complete Blood Count Auto Diff 5 Months E03.9 - Hypothyroidism, unspecified, R73.9 - Hyperglycemia, unspecified, R74.8 - Abnormal levels of other serum enzymes Lipid Panel 5 Months E03.9 - Hypothyroidism, unspecified, R73.9 - Hyperglycemia, unspecified, R74.8 - Abnormal levels of other serum enzymes PSA,Total (Free>4and<10) 5 Months E03.9 - Hypothyroidism, unspecified, R73.9 - Hyperglycemia, unspecified, R74.8 - Abnormal levels of other serum enzymes Coding Level of Care Code Est Pt Level 4 (24469) Diagnoses Elevated liver enzymes R74.8 Hypothyroid E03.9 HTN (hypertension) I10 Hyperglycemia R73.9
== END 2023-09-20 14:06 | disposition home or self-care (01) ==
PROVIDERS: PCP Internal Medicine; Visit Provider Internal Medicine
DX: R74.8 Abnormal levels of other serum enzymes (principal); E03.9 Hypothyroidism, unspecified; I10 Essential (primary) hypertension; R73.9 Hyperglycemia, unspecified
CPT/HCPCS: 99214

== ENCOUNTER 2024-01-15 10:33 | Day surgery (SDC) | payer MEDICARE, SELFPAY ==
--- NOTE | 2024-01-12 13:29 | P.CONAN_ITS ---
Documented by User: Samantha Deluna NP 01/12/24 13:29 HPI - Anesthesia Eval Consult details Narrative: 63yo M for Colonoscopy PMFSH Active Problems Active Problems: All Active Problems Fatigue (Acute) HTN (hypertension) (Acute) Hypothyroid (Acute) Bacterial sinusitis (Acute) Elevated liver enzymes (Acute) Rectal bleeding (Acute) Hyperglycemia (Acute) Sciatica (Acute) Past Medical History Medical History HTN (hypertension) Hypothyroid Glaucoma Hyperlipidemia Family History Family History Mother No problems noted. Family history of problems with anesthesia: No Surgical History Surgical History Hx of colonoscopy History of hernia surgery History of Problems with Anesthesia: No Social History Social History Household Members Other:: , 1 daughter with 5 children Housing: [facility] Patient Tobacco Use Status: Never used Tobacco e-Cigarette/Vaping Use: Never Used Are you DNR?: No Advance Directives: No Advance Directives Information Provided: Yes Nutrition Risks: No Nutritional Risk service: No Current occupational status: unemployed Cognitive needs: No Hearing needs: No Vision needs: Yes Meds Allergies Allergy/AdvReac Type Severity Reaction Status Date / Time Penicillins Allergy Intermediate Vomiting Verified 09/20/23 13:02 Home Medications ?Medication ?Instructions ?Recorded ?Confirmed ?Last Taken ?Type bimatoprost 0.01 % eye drops 0 drp ophthalmic (eye) 12/14/21 02/17/23 Unknown History (Tono) dorzolamide 2 % eye drops 0 drp ophthalmic (eye) 12/14/21 02/17/23 Unknown History Assessment and Plan Assessment Anesthesia Assessment: Chart Reviewed Final Anesthetic Review Family History of Problems with Anesthesia: No History of Problems with Anesthesia: No Documented by User: Cesilia Wilburn MD 01/15/24 11:17 PMFSH Past Medical History Medical History HTN (hypertension) Hypothyroid Glaucoma Hyperlipidemia Family History Family History Mother No problems noted. Surgical History Surgical History Hx of colonoscopy History of hernia surgery Social History Social History Household Members Other:: , 1 daughter with 5 children Housing: [facility] Patient Tobacco Use Status: Never used Tobacco e-Cigarette/Vaping Use: Never Used Are you DNR?: No Advance Directives: No Advance Directives Information Provided: Yes Nutrition Risks: No Nutritional Risk service: No Current occupational status: unemployed Cognitive needs: No Hearing needs: No Vision needs: Yes Meds Allergies Allergy/AdvReac Type Severity Reaction Status Date / Time Penicillins Allergy Intermediate Vomiting Verified 09/20/23 13:02 Home Medications ?Medication ?Instructions ?Recorded ?Confirmed ?Last Taken ?Type bimatoprost 0.01 % eye drops 0 drp ophthalmic (eye) 12/14/21 02/17/23 Unknown History ([place]) dorzolamide 2 % eye drops 0 drp ophthalmic (eye) 12/14/21 02/17/23 Unknown History Exam Airway Mallampati Class: III TM Dist: >3cm Neck ROM: Full Assessment and Plan Assessment Anesthesia Assessment: Anesthesia Plan Discussed Final Anesthetic Review NPO: Yes ASA Class: II Final Preanesthetic Review: No Changes in Pt Med Stat, Meds/Allgs Chart Reviewed, Consent Obtained/Reviewed and Anes Risks/Benef Reviewed Patient Risk: Low Procedure Risk: Low Anesthetic Plan Anesthetic Plan: TIVA Disposition: Standard PACU
[2024-01-15 10:54] VITALS: BP 153/86; PULSE 18; RESP 18; TEMP 36.5; O2SAT 98; BMI 27.0
[2024-01-15] MEDS: Lactated Ringers 1,000 ML 100 ML IVCONT (10:58)
--- NOTE | 2024-01-15 11:04 | P.HPSUR_ITS ---
Pre-Procedural Eval Section A - 24 Hr Update-Section A only Date of Service: 01/15/24 Section B - Complete if H&P > 30 days Chief Complaint: Benign neoplasm of colon, unspecified Relevant Family History (Specify if Yes): No Relevant Social History: None Present Medications: see Short Stay Collaborative assessment Medical History: Significant History (colon polyps) History of Previous Operations: Relevant previous surgery/procedure and date(s) (History of hernia surgery, colonoscopy) Allergies: Allergies Allergy/AdvReac Type Severity Reaction Status Date / Time Penicillins Allergy Intermediate Vomiting Verified 09/20/23 13:02 Review of Systems Sugical H&P ROS: Negative: Constitution, Cardiovascular, Respiratory, Neurological, Psychiatric, Hem-Onc, Allergic/Immunologic, Gastrointestinal, Genitourinary, Musculoskeletal, Integumentary, Endocrine and Eye s/Ears/Nose/Throat Exam Surgical H&P Exam: Normal: HEENT, Normal: Heart, Normal: Lungs, Normal: Extremities, Normal: Abdomen and Normal: Neurological and Significant Findings: Skin (hemangioma ) Plan Diagnosis/Plan: Unchanged I have reviewed the history and physical and performed a pertinent physical examination on my patient. No changes have occurred unless specified. Time Spent With Patient Time: Total time managing care of this patient today ____ minutes.
--- NOTE | 2024-01-15 11:10 | P.OPN-COLO_ITS ---
Colonoscopy Operative Note Operative Note Date of Service: 01/15/24 Narrative: Operative Information Procedure Description: Colonoscopy Indication: hx of colon polyp with dysplasia Anesthesia: MAC COLONOSCOPY Instrument: Olympus variable stiffness pediatric scope 190L Colonoscopy Monitoring: Vital signs and clinical assessment, continuous EKG monitoring, Pulse oximetry, Carbon Dioxide monitoring and blood pressure monitoring were done throughout the procedure. Colon withdrawal time was 6 minutes. Procedure: The patient was placed in the left lateral decubitis position and pre-procedure medications were administered. After a digital rectal examination of the ano-rectum, the video colonoscope was inserted into the rectum and advanced through the colon to the cecum/TI. The colonoscope was slowly withdrawn in a retrograde panoramic fashion and the colon mucosa was carefully examined including a retroflexed view of the rectum. Findings and interventions are described below. Procedure Difficulty: easy Findings: Terminal Ileum-normal Cecum:normal Ascending Colon: 5-6 mm sessile polyp removed with cold snare Transverse Colon -normal Descending Colon:normal Sigmoid Colon: severe diverticulosis Rectum: Retroflexion with small internal hemorrhoids seen, grade I Anorectum - normal Intervention: cold snare Colon preparation: [place] Bowel Preparation Scale Right colon; 2 Transverse colon: 2 Left colon; 2 (0 = Unprepared colon segment with mucosa not seen due to solid stool that cannot be cleared. 1 = Portion of mucosa of the colon segment seen, but other areas of the colon segment not well seen due to staining, residual stool and/or opaque liquid. 2 = Minor amount of residual staining, small fragments of stool and/or opaque liquid, but mucosa of colon segment seen well. 3 = Entire mucosa of colon segment seen well with no residual staining, small fragments of stool or opaque liquid) Impression and Post Procedure Diagnosis: diverticulosis colon polyps internal hemorrhoids Plan: High fiber diet leaflet Avoid straining at stool, epsom salts and sitz bath, anusol supps or cream Repeat Colonoscopy in 3 years due to prior hx of polyp with dysplasia or earlier if clinically indicated Above findings were reviewed with the patient and relevant handouts were provided if indicated.
[2024-01-15 11:30] VITALS: BP 111/72; PULSE 86; RESP 15; TEMP 36.4; O2SAT 95
[2024-01-15 11:45] VITALS: BP 122/78; PULSE 86; RESP 18; TEMP 36.4; O2SAT 97
== END 2024-01-15 12:36 | disposition home or self-care (01) ==
PROVIDERS: PCP Internal Medicine; Visit Provider Internal Medicine Gastroenterology
PROC: 0DJD8ZZ Inspection of Lower Intestinal Tract, Via Natural or Artificial Opening Endoscopic (ICD-10-PCS; CPT 45378; principal; 2024-01-15 12:30)
DX: Z12.11 Encounter for screening for malignant neoplasm of colon (principal); Z86.010 Personal history of colon polyps; D12.2 Benign neoplasm of ascending colon; K57.30 Diverticulosis of large intestine without perforation or abscess without bleeding; K64.0 First degree hemorrhoids; I10 Essential (primary) hypertension; E78.5 Hyperlipidemia, unspecified; E03.9 Hypothyroidism, unspecified; H40.9 Unspecified glaucoma; R74.01 Elevation of levels of liver transaminase levels; Z79.899 Other long term (current) drug therapy; Z88.0 Allergy status to penicillin; Z88.2 Allergy status to sulfonamides; Z98.890 Other specified postprocedural states; Z56.0 Unemployment, unspecified
CPT/HCPCS: 45385; 88305

== ENCOUNTER → 2024-01-15 10:33 | Outpatient (BNV) | payer MEDICARE, SELFPAY | PROVIDERS: PCP Internal Medicine; Visit Provider Internal Medicine Gastroenterology | DX: Z12.11 Encounter for screening for malignant neoplasm of colon (principal); Z86.010 Personal history of colon polyps; D12.2 Benign neoplasm of ascending colon; K57.30 Diverticulosis of large intestine without perforation or abscess without bleeding | CPT/HCPCS: 45385 ==

== ENCOUNTER 2024-02-06 12:25 | Outpatient (AMB) | payer MEDICARE, SELFPAY ==
--- NOTE | 2024-02-06 12:31 | A.OFFPC_ITS ---
Vital Signs 02/06/24 12:32 Height 5 ft 6 in Weight 169 lb BMI 27.3 BP 120/66 Blood Pressure Location Lt brachial Position Sitting Pulse 77 Pulse Source Pulse Oximeter Pulse Oximetry (%) 97 Oxygen Delivery Method Room Air Intake Visit Reasons: Follow up Intake Note: Pt is here today for a follow up visit. Allergies Penicillins Allergy (Intermediate, Verified 02/06/24 12:37) Vomiting Medication List - Last Reconciled 02/06/24 by Wanda Vidal MD bimatoprost 0.01% (Lumigan) 0 drps ophthalmic (eye) dorzolamide 2% 0 drps ophthalmic (eye) fluocinonide 0.05% 1 appl topical BID hydrocortisone 2.5% 1 appl [place] BID-QID PRN ketoconazole 2% 1 appl topical DAILY lisinopril 10 mg PO DAILY sodium,potassium,mag sulfates 17.5-3.13-1.6 gram (Suprep Bowel Prep Kit) DILUTE each bottle with 16oz of water; drink first bottle 5pm evening before procedure AND second bottle at 11pm; follow each bottle with at least 32 oz.of water within 1 hour after each bottle thyroid (pork) ([place] Thyroid) 45 mg (1.5 x 30 mg) PO DAILY Tobacco use date assessed: 02/06/24 Fall risk assessment: No Falls in past year Last assessed Fall Risk: 02/06/24 Dental Screening Dental Screen Date: 09/20/23 HPI Follow up HPI Details Patient presents for the follow-up on hypertension hypothyroidism stable on current medications. He is concerned about testosterone level because he is not able to gain as much muscle mass working out like he used to 20 years ago. 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 He complains of difficulty maintaining erections. [facility] Medical History HTN (hypertension) Hypothyroid Glaucoma Hyperlipidemia Surgical History Hx of colonoscopy History of hernia surgery Family History Mother No problems noted. Social History Household Members Other:: , 1 daughter with 5 children Housing: Condominium Patient Tobacco Use Status: Never used Tobacco e-Cigarette/Vaping Use: Never Used service: No Current occupational status: unemployed Cognitive needs: No Hearing needs: No Vision needs: Yes Questionnaire PHQ-9 Over the last 2 weeks, how often have you been bothered by any of the following problems? 1. Little interest or pleasure in doing things: not at all 2. Feeling down, depressed, or hopeless: not at all 3. Trouble falling or staying asleep, or sleeping too much: not at all 4. Feeling tired or having little energy: not at all 5. Poor appetite or overeating: not at all 6. Feeling bad about yourself - or that you are a failure or have let yourself or your family down: not at all 7. Trouble concentrating on things, such as reading the newspaper or watching television: not at all 8. Moving or speaking so slowly that other people could have noticed. Or the opposite - being so fidgety or restless that you have been moving around a lot more than usual: not at all 9. Thoughts that you would be better off or of hurting yourself in some way: not at all Total score: 0 Depression Screening Interpretation: Negative Depression Screening Done: Yes Source: Developed by Drs. Glynn Winters, Lulu Boo, Randy Samuel and colleagues, with an educational sarahi from [employer]. Thrive Questionnaire Date Thrive assessed: 02/06/24 I am a: Patient What is your living situation today?: I have a steady place to live Within the past 12 months, did the food you bought not last and you didn't have the money to get more?: Never true Within the past 12 months, did you worry whether your food would run out before you got money to buy more?: Never true Do you have trouble paying for medicines?: No Do you have trouble getting transportation to medical appointments?: No Do you have trouble paying your heating and electricity bill?: No Do you have trouble taking care of your child, family member or friend?: No Do you have trouble with day-to-day activities such as bathing, preparing meals, shopping, managing finances, etc.?: No Are you currently unemployed and looking for a job?: No Are you interested in more education?: No Please select the resources that you would like help with: None Currently or been in a relationship where the following occur: No concerns reported THRIVE Score: 0 AUDIT C Alcohol Use Questionnaire (AUDIT-C) 1. How often do you have a drink containing alcohol?: Never 3. How often do you have six or more drinks on one occasion?: Never Total Score: 0 MANSOOR-7 AMB Questionnaire MANSOOR-7 Date MANSOOR - 7 assessed: 02/06/24 Feeling nervous, anxious, or on edge: 0 = Not at all Not being able to stop or control worryin = Not at all Worrying too much about different things: 0 = Not at all Trouble relaxin = Not at all Being so restless that it is hard to sit still: 0 = Not at all Becoming easily annoyed or irritable: 0 = Not at all Feeling afraid as if something awful might happen: 0 = Not at all Total MANSOOR-7 score (0-4 normal; 5-9 mild; 10-14 moderate; 15-21 severe): 0 Source: Developed by Drs. Glynn Winters, Lulu Boo, Randy Samuel and colleagues, with an educational sarahi from [employer]. MANSOOR-7 Assessment Billing MANSOOR-7 Assessment Tool: MANSOOR-7 Assessment 46548 Review of Systems Const All systems reviewed & are unremarkable except as noted in HPI and below ENT Reports no additional complaints Card Reports no additional complaints Resp Reports no additional complaints GI Reports no additional complaints Reports no additional complaints Physical exam (Primary Care) Vital Signs: Last Vital Signs Pulse 77 02/06/24 12:32 BP 120/66 02/06/24 12:32 Pulse Ox 97 02/06/24 12:32 Oxygen Delivery Method Room Air 02/06/24 12:32 BMI result Body Mass Index 27.3 Tobacco/Smoking Status: Tobacco use Status Tobacco use date assessed 02/06/24 02/06/24 12:39 Patient Tobacco Use Status Never used Tobacco 02/06/24 12:31 e-Cigarette/Vaping Use Never Used 02/06/24 12:31 PHQ-9: PHQ-9 Score PHQ-9: Total score 0 02/06/24 12:39 Depression Screening Interpretation: Negative Thrive Assessment: Date of Thrive Assessment Date Thrive assessed 08/27/24 08/27/24 12:39 Currently or been in a relationship where the following occur: No concerns reported Const General: no acute distress HENMT Face and sinus: Yes normal facial exam Throat: Yes posterior oropharynx normal Neck Neck: Yes supple Resp Effort & Inspection: normal respiratory effort Auscultation: clear to auscultation bilaterally Cardio Rhythm: regular rhythm Heart sounds: S1 normal heart sound present and S2 normal heart sound present GI Inspection: Yes normal to inspection Palpation (GI): Soft to palpation Percussion: Yes normal to percussion Auscultation: normal bowel sounds Assessment and Plan Assessment & Plan (1) HTN (hypertension): Code(s): I10 - Essential (primary) hypertension Plan: Continue Lisinopril (2) Hypothyroid: Code(s): E03.9 - Hypothyroidism, unspecified Plan: Continue thyroid replacement check TSH (3) Hyperglycemia: Code(s): R73.9 - Hyperglycemia, unspecified Plan: ADA diet regular physical activity discussed with the patient check A1c (4) Elevated liver enzymes: Comment: 2-3 glasses of wine at night, liver ultrasound consistent with fatty liver/ chronic liver disease, hepatitis workup negative 01/01 Code(s): R74.8 - Abnormal levels of other serum enzymes Plan: Monitor LFT (5) Erectile disorder: Code(s): N52.9 - Male erectile dysfunction, unspecified Plan: Check testosterone level tried Levitra Orders: Orders Complete Blood Count Auto Diff Today E03.9 - Hypothyroidism, unspecified, I10 - Essential (primary) hypertension, R73.9 - Hyperglycemia, unspecified, R74.8 - Abnormal levels of other serum enzymes Lipid Panel Today E03.9 - Hypothyroidism, unspecified, I10 - Essential (primary) hypertension, R73.9 - Hyperglycemia, unspecified, R74.8 - Abnormal levels of other serum enzymes PSA,Total (Free>4and<10) Today E03.9 - Hypothyroidism, unspecified, I10 - Essential (primary) hypertension, R73.9 - Hyperglycemia, unspecified, R74.8 - Abnormal levels of other serum enzymes Testosterone, Free/Total Today E03.9 - Hypothyroidism, unspecified, I10 - Essential (primary) hypertension, R73.9 - Hyperglycemia, unspecified, R74.8 - Abnormal levels of other serum enzymes Hemoglobin A1c Today E03.9 - Hypothyroidism, unspecified, I10 - Essential (primary) hypertension, R73.9 - Hyperglycemia, unspecified, R74.8 - Abnormal levels of other serum enzymes Comprehensive [place]. Panel Fast Today E03.9 - Hypothyroidism, unspecified, I10 - Essential (primary) hypertension, R73.9 - Hyperglycemia, unspecified, R74.8 - Abnormal levels of other serum enzymes TSH reflex Free T4 Today E03.9 - Hypothyroidism, unspecified, I10 - Essential (primary) hypertension, R73.9 - Hyperglycemia, unspecified, R74.8 - Abnormal l evels of other serum enzymes UA w Microscopic Today E03.9 - Hypothyroidism, unspecified, I10 - Essential (primary) hypertension, R73.9 - Hyperglycemia, unspecified, R74.8 - Abnormal levels of other serum enzymes Medications: New vardenafil 10 mg PO DAILY PRN 14 tabs 0RF sexual activity Coding Level of Care Code Est Pt Level 4 (04592) Diagnoses HTN (hypertension) I10 Hypothyroid E03.9 Hyperglycemia R73.9 Elevated liver enzymes R74.8 Erectile disorder N52.9 Additional Codes MANSOOR-7 Assessment Billing - MANSOOR-7 Assessment Tool: MANSOOR-7 Assessment 93894 ([id number])
[2024-02-06 12:32] VITALS: BP 120/66; PULSE 77; O2SAT 97; BMI 27.3
== END 2024-02-06 14:05 | disposition home or self-care (01) ==
PROVIDERS: PCP Internal Medicine; Visit Provider Internal Medicine
DX: I10 Essential (primary) hypertension (principal); E03.9 Hypothyroidism, unspecified; R73.9 Hyperglycemia, unspecified; R74.8 Abnormal levels of other serum enzymes; N52.9 Male erectile dysfunction, unspecified
CPT/HCPCS: 99214

== ENCOUNTER 2024-02-24 06:33 | Outpatient (REF) | payer MEDICARE, SELFPAY ==
[2024-02-24 11:07] LABS: MANUAL DIFF FLAG NO
[2024-02-24 11:08] LABS: Appearance Urine Clear; Color Urine Yellow; Glucose Urine UA Negative (Negative); Leukocyte Esterase Urine Negative (Negative); Nitrite Urine Negative (Negative); PH 6.5 (5.0-9.0); Urine Blood Negative (Negative); Urine Ketones Negative (Negative); Urine Protein Negative (Neg-Trace)
[2024-02-24 11:11] LABS: Bacteria Urine None Seen (None Seen); Hyaline Casts Urine 0-2 /LPF (0-2); RBC Urine 0-2 /HPF (0-2); Squamous Epithelial Cell Urine 0-2 /HPF (0-2); WBC Urine 0-5 /HPF (0-5)
[2024-02-24 11:18] LABS: Basophils Absolute Auto 0.1 X10*3/uL (0.0-0.2); Basophils Percent Auto 1.1 % (0-2); Eosinophils Absolute Auto 0.1 X10*3/uL (0.0-0.4); Eosinophils Percent Auto 1.3 % (0-4); Hematocrit 45.8 % (42.0-52.0); Hemoglobin 15.1 g/dl (14.0-18.0); Imm Gran Abs Auto 0.01 X10*3/uL (0.00-0.03); Imm Gran Pct Auto 0.2 % (0.0-0.4); Lymphocytes Absolute Auto 2.1 X10*3/uL (1.2-4.9); Lymphocytes Percent Auto 44.6 % (20-40); Mean Corpuscular Hemoglobin 31.3 pg (27.0-33.0); Mean Platelet Volume 9.6 fL (9.4-12.4); Monocytes Absolute Auto 0.5 X10*3/uL (0.1-1.2); Monocytes Percent Auto 10.9 % (2-11); Neutrophils Percent Auto 41.9 % (45-73); Platelet Count 252 X10*3/uL (160-400); Red Blood Count 4.82 X10*6/uL (4.60-5.80); Red Cell Distribution Width 12.8 % (11.0-16.0); White Blood Count 4.7 X10*3/uL (4.8-10.8)
[2024-02-24 11:23] LABS: Estimated Average Glucose 117 mg/dL; Hemoglobin A1C 147.0469 umol/L; Hemoglobin A1c % 5.7 % (<6.0)
[2024-02-24 11:38] LABS: Alanine Aminotransferase 60 U/L (0-40); Albumin Level 4.2 g/dL (3.5-5.0); Alkaline Phosphatase 65 U/L (39-117); Anion Gap 11 (12-20); Aspartate Amino Transferase 28 U/L (5-37); Bilirubin Total 0.5 mg/dL (0.0-1.0); Blood Urea Nitrogen 11 mg/dL (9-16); Calcium 9.8 mg/dL (8.4-10.2); Carbon Dioxide 28 mmol/L (22-29); Chloride 106 mmol/L (96-108); Cholesterol 218 mg/dL (<200); Estimated Glomerular Filt Rate > 60; Glucose Fasting 109 mg/dL (60-99); HDL Cholesterol 38 mg/dL (>40); LDL Cholesterol Calculated 152 mg/dL (<100); Potassium 4.2 mmol/L (3.3-5.1); Sodium 141 mmol/L (135-145); Total Protein 7.4 g/dL (6.5-8.0); Triglycerides 142 mg/dL (<150)
[2024-02-24 11:41] LABS: PSA,Total (Free>4and<10) 0.82 ng/mL (0.00-4.00)
[2024-02-24 11:42] LABS: TSH reflex Free T4 1.82 uIU/mL (0.32-4.0)
[2024-03-01 12:43] LABS: Testosterone, Free 65.8 pg/mL (35.0-155.0); Testosterone, Total 470 ng/dL (250-1100)
== END 2024-02-24 06:34 | disposition home or self-care (01) ==
LOC: HO.HMGCLDS 06:33
PROVIDERS: PCP Internal Medicine; Visit Provider Internal Medicine
DX: I10 Essential (primary) hypertension (principal); E03.9 Hypothyroidism, unspecified; R73.9 Hyperglycemia, unspecified; R74.8 Abnormal levels of other serum enzymes; Z12.5 Encounter for screening for malignant neoplasm of prostate
CPT/HCPCS: 36415; 80053; 80061; 81001; 83036; 84153; 84402; 84403; 84443; 85025

== ENCOUNTER 2024-02-29 09:35 | Outpatient (AMB) | payer MEDICARE, SELFPAY ==
[2024-02-29 09:41] VITALS: BP 126/80; PULSE 72; O2SAT 96; BMI 27.3
--- NOTE | 2024-02-29 09:41 | MHC.PC.OV ---
Vital Signs 02/29/24 09:41 Height 5 ft 6 in Weight 169 lb BMI 27.3 BP 126/80 Blood Pressure Location Lt brachial Position Sitting Pulse 72 Pulse Source Pulse Oximeter Pulse Oximetry (%) 96 Oxygen Delivery Method Room Air Intake Visit Reasons: Follow up on labs Intake Note: Pt is here today for a follow up visit on labs. Allergies Penicillins Allergy (Intermediate, Verified 02/29/24 09:44) Vomiting Medication List - Last Reconciled 02/29/24 by Wanda Vidal MD bimatoprost 0.01% (Lumigan) 0 drps ophthalmic (eye) dorzolamide 2% 0 drps ophthalmic (eye) fluocinonide 0.05% 1 appl topical BID hydrocortisone 2.5% 1 appl [place] BID-QID PRN ketoconazole 2% 1 appl topical DAILY lisinopril 10 mg PO DAILY sodium,potassium,mag sulfates 17.5-3.13-1.6 gram (Suprep Bowel Prep Kit) DILUTE each bottle with 16oz of water; drink first bottle 5pm evening before procedure AND second bottle at 11pm; follow each bottle with at least 32 oz.of water within 1 hour after each bottle thyroid (pork) ([place] Thyroid) 45 mg (1.5 x 30 mg) PO DAILY vardenafil 10 mg PO DAILY PRN Tobacco use date assessed: 02/06/24 Dental Screening Dental Screen Date: 09/20/23 HPI Follow up on labs HPI Details Patient presents for the follow-up on hypothyroidism hypertension. He is moving to [place]. [facility] Medical History HTN (hypertension) Hypothyroid Glaucoma Hyperlipidemia Surgical History Hx of colonoscopy History of hernia surgery Family History Mother No problems noted. Social History Household Members Other:: , 1 daughter with 5 children [facility] Tobacco Use Status: Never used Tobacco e-Cigarette/Vaping Use: Never Used service: No Current occupational status: unemployed Cognitive needs: No Hearing needs: No Vision needs: Yes Questionnaire Thrive Questionnaire Date Thrive assessed: 02/06/24 MANSOOR-7 AMB Questionnaire MANSOOR-7 Date MANSOOR - 7 assessed: 02/06/24 Source: Developed by Drs. Glynn Winters, Lulu Boo, Randy Samuel and colleagues, with an educational sarahi from [employer]. Review of Systems Const All systems reviewed & are unremarkable except as noted in HPI and below Eyes Reports no additional complaints Card Reports no additional complaints Resp Reports no additional complaints GI Reports no additional complaints Physical exam (Primary Care) Vital Signs: Last Vital Signs Pulse 72 02/29/24 09:41 BP 126/80 02/29/24 09:41 Pulse Ox 96 02/29/24 09:41 Oxygen Delivery Method Room Air 02/29/24 09:41 BMI result Body Mass Index 27.3 Tobacco/Smoking Status: Tobacco use Status Tobacco use date assessed 02/06/24 02/29/24 09:46 Patient Tobacco Use Status Never used Tobacco 02/29/24 09:46 e-Cigarette/Vaping Use Never Used 02/29/24 09:46 Thrive Assessment: Date of Thrive Assessment Date Thrive assessed 02/06/24 02/29/24 09:46 Const General: no acute distress Neck Neck: Yes supple Resp Effort & Inspection: normal respiratory effort Auscultation: clear to auscultation bilaterally Cardio Rhythm: regular rhythm Heart sounds: S1 normal heart sound present and S2 normal heart sound present Assessment and Plan Assessment & Plan Medications: Refilled lisinopril 10 mg PO DAILY 90 tabs 3RF vardenafil 10 mg PO DAILY PRN 14 tabs 0RF sexual activity Coding Level of Care Code Est Pt Level 4 (44862)
== END 2024-02-29 10:54 | disposition home or self-care (01) ==
PROVIDERS: PCP Internal Medicine; Visit Provider Internal Medicine
DX: I10 Essential (primary) hypertension (principal); E03.9 Hypothyroidism, unspecified

== ENCOUNTER → 2024-02-29 09:35 | Outpatient (BNVA) | payer MEDICARE, SELFPAY | PROVIDERS: PCP Internal Medicine; Visit Provider Internal Medicine | DX: I10 Essential (primary) hypertension (principal); E03.9 Hypothyroidism, unspecified | CPT/HCPCS: 99212 ==